=== PATIENT | male | born 1985 | race Caucasian/White ===

== ENCOUNTER 2016-05-17 13:24 | Emergency (ER) | payer BC ==
[2016-05-17] MEDS ORDERED: Ketorolac 30 MG/ML SDV IVPUSH ONE (13:59)
[2016-05-17] MEDS ORDERED: Sodium Chloride 0.9% 10 ML Syringe FLUSH PRN (13:59)
[2016-05-17] MEDS ORDERED: Lactated Ringers 1,000 ML IV ONE (13:59)
--- NOTE | 2016-05-17 14:08 | EDM.PDOC ---
ED HPI Trauma - General Chief Complaint: Lower Extremity Injury/Pain Stated Complaint: DEHYDRATION Time Seen by Provider: 05/17/16 13:53 Source: Reports: Patient History Limitations: Reports: No limitations - History of Present Illness INITIAL COMMENTS - FREE TEXT/NARRATIVE: Patient presents for evaluation and treatment of bilateral discomfort in the thighs. Patient reports that he worked a 20 hour day yesterday. 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 He reports yesterday the work was particularly strenuous , more so than his normal activity. He reports muscle pain and spasms to the bilateral lateral thighs. He states that he did not drink much water yesterday. He reports that he had about 4 monster energy drinks yesterday. He feels that he is dehydrated. 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 He feels he would benefit from some fluid. He has not taken anything prior to arrival in the ER today. He denies any numbness or tingling into his legs or any pain in his calfs. He states that he did take a workout multivitamin pack and a multivitamin today. Pain/Injury Location: Reports: lower extremity, right, lower extremity, left Allergies/ADRs: Allergies No Known Allergies Allergy (Verified 05/17/16 15:16) Home Medications: Ambulatory Orders Carvedilol [Coreg] 6.25 mg PO DAILY 05/17/16 [Confirmed 05/17/16] Lisinopril 20 mg PO DAILY 05/17/16 [Confirmed 05/17/16] Ranitidine HCl [Zantac] 300 mg PO DAILY 05/17/16 [Confirmed 05/17/16] Topiramate [Topamax] 100 mg PO DAILY 05/17/16 [Confirmed 05/17/16] Past Medical History Cardiovascular History: Reports: Hypertension Gastrointestinal History: Reports: GERD - Past Surgical History GI Surgical History: Reports: Other (see below) Other GI Surgeries/Procedures: sleeve surgery june 2015 Social & Family History - Tobacco Use Smoking Status *Q: Current Every Day Smoker Years of Tobacco use: 8 Packs/Tins Daily: 0.5 - Caffeine Use Caffeine Use: Reports: Energy drinks - Recreational Drug Use Recreational Drug Use: No Review of Systems - Review of Systems Review Of Systems: See Below Musculoskeletal: Reports: muscle pain, other (no calf pain) Neurological: Denies: Numbness, Tingling Trauma Exam - Physical Exam Exam: See Below Exam Limited By: No limitations General Appearance: Reports: alert, WD/WN, no apparent distress Respiratory Exam: Reports: no respiratory distress, lungs clear, normal breath sounds Cardiovascular: Reports: normal peripheral pulses, regular rate, rhythm, no murmur Extremities: Reports: no evidence of injury, tenderness (bilteral lateral legs) , other (negative homans sign bilteral) Neurologic: Reports: alert, normal mood/affect Skin: Reports: Normal color, Warm/dry. Denies: Ecchymosis Course - Vital Signs Last Recorded V/S: Last Vital Signs Temp 36.1 C 05/17/16 13:41 Pulse 53 L 05/17/16 15:47 Resp 18 05/17/16 15:47 BP 108/68 05/17/16 15:47 Pulse Ox 98 05/17/16 15:47 - Orders/Labs/Meds Orders: Active Orders 24 hr Category Date Time Status Peripheral IV Care [RC] . DIRECTED Care 05/17/16 13:59 Active Peripheral IV Insertion Adult [OM.PC] Routine Oth 05/17/16 13:59 Ordered Labs: Laboratory Tests 05/17/16 Range/Units 14:20 Sodium 139 (136-145) mEq/L Potassium 4.4 (3.5-5.1) mEq/L Chloride 105 (98-107) mEq/L Carbon Dioxide 25 (21-32) mEq/L Anion Gap 13.4 (5-15) BUN 14 (7-18) mg/dL Creatinine 0.8 (0.7-1.3) mg/dL Est Cr Clr Drug Dosing 152.59 mL/min Estimated GFR (MDRD) > 60 (>60) mL/min BUN/Creatinine Ratio 17.5 (14-18) Glucose 78 (74-106) mg/dL Calcium 9.0 (8.5-10.1) mg/dL Magnesium 2.0 (1.8-2.4) mg/dl Total Bilirubin 0.5 (0.2-1.0) mg/dL AST 21 (15-37) U/L ALT 28 (16-63) U/L Alkaline Phosphatase 96 (46-116) U/L Total Protein 7.2 (6.4-8.2) g/dl Albumin 3.8 (3.4-5.0) g/dl Globulin 3.4 gm/dL Albumin/Globulin Ratio 1.1 (1-2) Meds: Medications Discontinued Medications Generic Name Dose Route Start Last Admin Trade Name Ellyn PRN Reason Stop Dose Admin Lactated Ringer's 1,000 mls @ 999 mls/hr 05/17/16 13:59 05/17/16 14:28 Ringers, Lactated IV 05/17/16 14:59 999 mls/hr .BOLUS ONE Administration Ketorolac Tromethamine 30 mg 05/17/16 13:59 05/17/16 14:28 Toradol IVPUSH 05/17/16 14:00 30 mg ONETIME ONE Administration Sodium Chloride 10 ml 05/17/16 13:59 05/17/16 14:29 Saline Flush FLUSH 10 ml ASDIRECTED PRN Administration Keep Vein Open - Re-Assessments/Exams Free Text/Narrative Re-Assessment/Exam: 05/17/16 15:18 Labs have returned. Sodium is 139, potassium is 4.4, chloride is 105. Anion gap is 15.4. Calcium is 9.0. Creatinine 0.8. Magnesium is 2.0 Patient has about 100mls of LR left. He is feeling greatly improved. Offered 2nd liter of LR but patient elects to go home at this time. Discharge instructions as documented. Departure - Departure Time of Disposition: 15:19 Disposition: Home, Self-Care 01 Condition: good Clinical Impression: Muscle spasm Instructions: Muscle Cramps and Spasms, [id number] Referrals: Caren Clemente PA-C [Primary Care Provider] - Forms: ED Department Discharge Additional Instructions: drink plenty of fluids today. He may take [id number] Tylenol or motion as needed for pain relief. He may also use heat or ice to the sore areas. Please return to the ER if your symptoms change or worsen. Follow- up with your primary care provider as needed. - My Orders Last 24 Hours: My Active Orders 05/17/16 13:59 Peripheral IV Care [RC] . DIRECTED Peripheral IV Insertion Adult [OM.PC] Routine - Assessment/Plan Last 24 Hours: My Active Orders 05/17/16 13:59 Peripheral IV Care [RC] . DIRECTED Peripheral IV Insertion Adult [OM.PC] Routine
[2016-05-17 15:49] VITALS: BP 108/68
== END 2016-05-17 15:30 | disposition home or self-care (01) ==
LOC: JD.ED 13:24
DX: M62.838 Other muscle spasm (principal); I10 Essential (primary) hypertension; K21.9 Gastro-esophageal reflux disease without esophagitis; F17.210 Nicotine dependence, cigarettes, uncomplicated
CPT/HCPCS: 36415; 80053; 83735; 96361; 96374; 99284; J1885; J7050; J7120

== ENCOUNTER 2020-06-08 19:38 | Emergency (ER) | payer SELFPAY ==
[2020-06-08 19:55] VITALS: BP 120/108; PULSE 126
[2020-06-08] MEDS ORDERED: Ketorolac 60 MG/2 ML SDV IM ONE (20:01)
[2020-06-08] MEDS ORDERED: Cyclobenzaprine 10 MG Tab PO ONE (20:01)
--- NOTE | 2020-06-08 20:07 | EDM.PDOC ---
ED HPI GENERAL MEDICAL PROBLEM - General Chief Complaint: Back Pain or Injury Stated Complaint: BACK SPASMS Time Seen by Provider: 06/08/20 19:41 Source of Information: Reports: Patient History Limitations: Reports: No Limitations - History of Present Illness INITIAL COMMENTS - FREE TEXT/NARRATIVE: This is a 43-year-old male. Yesterday evening around 11 PM he turned over in be d and twisted his upper back and developed severe spasm in his shoulders and between his shoulder blades. He went to a chiropractor today that eases up considerably but about 4 hours ago started getting worse and worse. Now when he tries to breathe he gets sharp pain in his mid back area. As long as he does not breathe deep he does not have a lot of pain but he feels his back is super tight. He has had this happen in the past. He denies any history of trauma does not do a lot of lifting. He denies any nausea and vomiting no fever no chills no cough no congestion no illnesses recently. Upper Back Pain Score (Numeric/FACES): 10 - Related Data Allergies Allergy/AdvReac Type Severity Reaction Status Date / Time No Known Allergies Allergy Verified 06/08/20 19:54 Home Meds: Home Meds Cyclobenzaprine [Flexeril] 10 mg PO Q6H PRN #20 tablet 06/08/20 [Rx] Past Medical History Cardiovascular History: Reports: Hypertension Gastrointestinal History: Reports: GERD Musculoskeletal History: Reports: Other (See Below) Other Musculoskeletal History: back spasms Endocrine/Metabolic History: Reports: Obesity/BMI 30+ - Past Surgical History GI Surgical History: Reports: Other (See Below) Other GI Surgeries/Procedures: sleeve surgery june 2015 Social & Family History - Tobacco Use Tobacco Use Status *Q: Former Tobacco User Years of Tobacco use: 23 Packs/Tins Daily: 1 Used Tobacco, but Quit: Yes Month/Year Tobacco Last Used: january 2020 Tobacco Use Comment: quit 5 months ago Second Hand Smoke Exposure: No - Caffeine Use Caffeine Use: Reports: Coffee - Recreational Drug Use Recreational Drug Use: Yes ED ROS GENERAL - Review of Systems Review Of Systems: See Below Constitutional: Denies: Fever, Chills HEENT: Reports: No Symptoms Respiratory: Reports: Shortness of Breath. Denies: Wheezing, Cough Cardiovascular: Reports: No Symptoms Endocrine: Reports: No Symptoms GI/Abdominal: Denies: Abdominal Pain, Nausea, Vomiting : Reports: No Symptoms Musculoskeletal: Reports: Back Pain Skin: Reports: No Symptoms Neurological: Reports: No Symptoms Psychiatric: Reports: No Symptoms Hematologic/Lymphatic: Reports: No Symptoms ED EXAM, UPPER BACK/NECK PAIN - Physical Exam Exam: See Below Exam Limited By: No Limitations General Appearance: Alert, WD/WN, Mild Distress Eye Exam: Bilateral Eye: Normal Inspection Ears Exam: Normal External Exam Nose Exam: Normal Inspection Throat/Mouth Exam: Normal Lips, Normal Voice, No Airway Compromise Head Exam: Normocephalic Neck Exam: Non-Tender, Full Range of Motion, Other Cardiovascular/Respiratory: Regular Rate, Rhythm, Normal Breath Sounds, Other (Every time he takes a deep breath he gets sharp pain so he takes very small shallow breaths rapidly.) GI/Abdominal: Soft, Other (He denies any abdominal pain.) Back Exam: Muscle Spasm, Other (Trapezius are minimally sore, paraspinal muscles from the shoulder blades to the edge of the shoulder blade is where he is hurting, He has no lower back tenderness whatsoever. If you would hold his breath he has no significant pain but breathing causes sharp pain in that area.) Extremities: Normal Inspection, Normal Range of Motion Neurologic: Alert, Oriented x 3 Psychiatric: Anxious Skin Exam: Normal Color, Warm/Dry Comments: Has no lumbar paraspinal muscle tenderness or spasms. His midline is mildly tender in the thoracic area but no pain in the cervical area or lumbar area. Course - Vital Signs Last Recorded V/S: Last Vital Signs Temp 98.3 F 06/08/20 19:49 Pulse 126 H 06/08/20 19:49 Resp 18 06/08/20 19:49 BP 120/108 H 06/08/20 19:49 Pulse Ox 98 06/08/20 19:49 - Orders/Labs/Meds Meds: Medications Discontinued Medications Generic Name Dose Route Start Last Admin Trade Name Ellyn PRN Reason Stop Dose Admin Cyclobenzaprine HCl 10 mg 06/08/20 20:01 06/08/20 20:06 Cyclobenzaprine 10 Mg Tab PO 06/08/20 20:02 10 mg ONETIME ONE Administration Ketorolac Tromethamine 60 mg 06/08/20 20:01 06/08/20 20:06 Ketorolac 60 Mg/2 Ml Sdv IM 06/08/20 20:02 60 mg ONETIME ONE Administration - Re-Assessments/Exams Free Text/Narrative Re-Assessment/Exam: 06/08/20 20:50 At approximately an hour after the shot and the Flexeril and he states his back is finally eased up he is breathing much more normally now not having that sharp pain. He wants to go home. I encouraged him to follow-up with a chiropractor tomorrow if they are in the office. I will provide a prescription for thrill to be used at home. Departure - Departure Time of Disposition: 20:51 Disposition: Home, Self-Care 01 Condition: Fair Clinical Impression: Spasm of thoracic back muscle Acute thoracic myofascial strain Qualifiers: Encounter type: initial encounter Qualified Code(s): S29.019A - Strain of muscle and tendon of unspecified wall of thorax, initial encounter - Discharge Information *PRESCRIPTION DRUG MONITORING PROGRAM REVIEWED*: Not Applicable *COPY OF PRESCRIPTION DRUG MONITORING REPORT IN PATIENT WICHO: Not Applicable Prescriptions: Cyclobenzaprine [Flexeril] 10 mg PO Q6H PRN #20 tablet PRN Reason: Spasms Instructions: Muscle Cramps and Spasms, [id number], Thoracic Strain, [id number] Referrals: PCP,None [Primary Care Provider] - Forms: ED Department Discharge Additional Instructions: You were here because you had some mid and upper back pain and spasms, we have eased this up some for you but you need to continue with the Flexeril every 6 hours as needed for the muscle spasms in the tightness, if your chiropractor is in the office tomorrow I would certainly see him again and have him work on your back, return to the ER if needed Sepsis Event Note (ED) - Evaluation Sepsis Screening Result: No Definite Risk - Focused Exam Vital Signs: Vital Signs Temp Pulse Resp BP Pulse Ox 06/08/20 19:49 98.3 F 126 H 18 120/108 H 98
== END 2020-06-08 20:58 | disposition home or self-care (01) ==
LOC: JD.ED 19:38
DX: S29.012A Strain of muscle and tendon of back wall of thorax, initial encounter (principal); I10 Essential (primary) hypertension; E66.9 Obesity, unspecified; Z68.43 Body mass index [BMI] 50.0-59.9, adult; Z87.891 Personal history of nicotine dependence; X50.1XXA Overexertion from prolonged static or awkward postures, initial encounter
CPT/HCPCS: 96372; 99283; A9270; J1885